=== PATIENT | female | born 1995 | race African-American/Black ===

== ENCOUNTER 2019-09-29 18:32 | Emergency (ER) | payer MEDICAID ==
[~2019-09-29] VITALS: Ht 165.1 cm; Wt 85.0 kg
[2019-09-29 18:53] VITALS: BP 124/63
[2019-09-29 19:58] LABS: COLOR URINE YELLOW (YELLOW); KETONES URINE NEGATIVE (NEGATIVE); LEUKOCYTE ESTERASE URINE NEGATIVE (NEGATIVE); NITRITE URINE NEGATIVE (NEGATIVE); OCCULT BLOOD URINE NEGATIVE (NEGATIVE); PH URINE 7.5 (4.5-8.0); PROTEIN URINE NEGATIVE (NEGATIVE); SPECIFIC GRAVITY URINE 1.027 (1.005-1.030)
[2019-09-29 20:01] LABS: CLARITY URINE SLIGHTLY HAZY (CLEAR)
== END 2019-09-29 20:45 | disposition home or self-care (01) ==
LOC: ER 18:32
DX: N39.0 Urinary tract infection, site not specified (principal)
CPT/HCPCS: 81003; 81025; 99283

== ENCOUNTER 2020-04-02 19:58 | Emergency (ER) | payer SELFPAY ==
[~2020-04-02] VITALS: Ht 167.6 cm; Wt 98.0 kg
[2020-04-02 22:56] LABS: CLARITY URINE CLOUDY (CLEAR); COLOR URINE YELLOW (YELLOW); KETONES URINE NEGATIVE (NEGATIVE); LEUKOCYTE ESTERASE URINE 2+ (NEGATIVE); NITRITE URINE NEGATIVE (NEGATIVE); OCCULT BLOOD URINE 3+ (NEGATIVE); PROTEIN URINE NEGATIVE (NEGATIVE)
[2020-04-02 23:30] VITALS: BP 107/53
[2020-04-02 23:32] LABS: HEMATOCRIT 30.9 % (36.0-48.0); HEMOGLOBIN 10.3 g/dL (12.0-16.0); MEAN CORPUSCULAR HEMOGLOBIN 27.7 pg (28.0-32.0); MEAN CORPUSCULAR VOLUME 82.9 fL (81.0-99.0); PLATELET 294 x1000/uL (130-400); RED BLOOD CELL COUNT 3.73 mill/uL (4.2-5.4); RED CELL DISTRIBUTION WIDTH 17.5 % (11.6-14.6)
[2020-04-02 23:39] LABS: CHLORIDE 108 mEq/L (98-107)
== END 2020-04-03 00:46 | disposition home or self-care (01) ==
LOC: ER 19:58
DX: O03.4 Incomplete spontaneous abortion without complication (principal)
CPT/HCPCS: 36415; 76801; 76817; 80048; 81003; 85027; 99284; Z7610

== ENCOUNTER 2021-04-14 09:35 | Emergency (ER) | payer MEDICAID ==
[~2021-04-14] VITALS: Ht 167.6 cm; Wt 68.0 kg
[2021-04-14 12:52] VITALS: BP 135/65
== END 2021-04-14 12:53 | disposition home or self-care (01) ==
LOC: ER 09:35
DX: S00.511A Abrasion of lip, initial encounter (principal); Y04.0XXA Assault by unarmed brawl or fight, initial encounter; Y93.89 Activity, other specified; Y92.89 Other specified places as the place of occurrence of the external cause
CPT/HCPCS: 99281

== ENCOUNTER 2021-05-27 21:27 | Emergency (ER) | payer MEDICAID | END 2021-05-27 22:39 | disposition left against medical advice (07) | LOC: ER 21:27 | DX: Z53.21 Procedure and treatment not carried out due to patient leaving prior to being seen by health care provider (principal) ==